=== PATIENT | female | born 1980 | race American Indian/Alaskan Native ===

== ENCOUNTER 2022-04-28 13:38 | Emergency (ER) | payer OTHER ==
[2022-04-28] MEDS ORDERED: LORazepam 2 MG/ML VIAL IV ONE (16:13)
[2022-04-28] MEDS ORDERED: SODIUM CHLORIDE 0.9% 1000 ML 1,000 ML IV ONE ×3 (16:13→22:10)
[2022-04-28] MEDS ORDERED: MORPHINE 4 MG/1 ML INJ IV ONE (16:13)
--- NOTE | 2022-04-28 16:38 | Emergency Department Report ---
ED General Adult HPI - General Chief complaint: Headache Stated complaint: MIGRAINE/LIGHTHEADED/BLURRED VISION Time Seen by Provider: 04/28/22 15:22 Source: patient, EMS Mode of arrival: Stretcher Limitations: No Limitations - History of Present Illness Initial comments: Is a 41-year-old female with past medical history of depression, anxiety, alcohol abuse. Patient reports that she has had symptoms sent since 10:15 AM. They note that she has felt tingly headache chest pain and shortness of breath. Patient's last alcohol use was 12:30 AM when she had [employer]. She reports her headache is 7 out of 10. She also states she feels very thirsty. Patient also history of hypothyroid and is on levothyroxine although she states she missed multiple doses. She also has a history of iron deficiency anemia possibly also vitamin B12 deficiency. He states she has also had heavy menses. Severity scale (0 -10): 7 - Related Data Allergies Allergy/AdvReac Type Severity Reaction Status Date / Time codeine Allergy Itching Verified 04/28/22 13:58 ED Review of Systems ROS: Stated complaint: MIGRAINE/LIGHTHEADED/BLURRED VISION Other details as noted in HPI Constitutional: denies: chills, fever Eyes: denies: eye pain, eye discharge, vision change ENT: denies: ear pain, throat pain Respiratory: denies: cough, shortness of breath, wheezing Cardiovascular: chest pain, palpitations Endocrine: no symptoms reported Gastrointestinal: denies: abdominal pain, nausea, diarrhea Genitourinary: denies: urgency, dysuria, discharge Musculoskeletal: denies: back pain, joint swelling, arthralgia Skin: denies: rash, lesions Neurological: headache, weakness, numbness, paresthesias Psychiatric: denies: anxiety, depression Hematological/Lymphatic: denies: easy bleeding, easy bruising ED Past Medical Hx - Past Medical History Previous Medical History?: Yes Hx Headaches / Migraines: Yes Additional medical history: Hyperthyroidism, severe Anemia, Coagulation difficulty. - Surgical History Past Surgical History?: Yes Hx Coronary Stent: No Hx Open Heart Surgery: No Hx Pacemaker: No Hx Internal Defibrillator: No Hx Cholecystectomy: No Hx Appendectomy: No Hx Breast Surgery: No Additional Surgical History: Thyroidectomy - Social History Smoking Status: Never Smoker ED Physical Exam - General Limitations: No Limitations General appearance: alert, in distress - Head Head exam: Present: atraumatic, normocephalic - Eye Eye exam: Present: normal appearance - ENT ENT exam: Present: normal exam, mucous membranes moist - Neck Neck exam: Present: normal inspection - Respiratory Respiratory exam: Present: normal lung sounds bilaterally. Absent: respiratory distress, wheezes, rales, rhonchi - Cardiovascular Cardiovascular Exam: Present: tachycardia. Absent: systolic murmur, diastolic murmur, rubs, gallop - GI/Abdominal GI/Abdominal exam: Present: soft, normal bowel sounds. Absent: distended, tenderness - Rectal Rectal exam: Present: deferred - Extremities Exam Extremities exam: Present: normal inspection - Back Exam Back exam: Present: normal inspection - Neurological Exam Neurological exam: Present: alert, oriented X3 - Psychiatric Psychiatric exam: Present: normal affect, normal mood - Skin Skin exam: Present: warm, dry, intact, normal color. Absent: rash ED Course Vital Signs 04/28/22 04/28/22 04/28/22 13:55 15:07 19:17 Temperature 98.2 F Pulse Rate 107 H 88 102 H Respiratory 18 13 15 Rate Blood Pressure 129/84 Blood Pressure 150/93 129/84 147/93 [Left] O2 Sat by Pulse 100 99 99 Oximetry - Reevaluation(s) Reevaluation #1: 04/28/22 19:[address] is negative. Patient feels somewhat improved with headache plan to give migraine cocktail and reassess. Dimer is negative and tachycardia is improved and O2 sats remain at 100. Reevaluation #2: 04/28/22 21:27 TSH noted to be elevated. Reevaluation #3: 04/28/22 23:43 Patient is improved. She no longer has a headache. I discussed strict return precautions including worsening headache, any fever or neck pain, any worsening chest pain shortness of breath abnormal altered activity. ED Medical Decision Making - Lab Data Result diagrams: 04/28/22 16:24 04/28/22 16:24 - EKG Data -: EKG Interpreted by Me EKG shows normal: sinus rhythm Rate: tachycardia - EKG Data 04/28/22 16:42 EKG performed shows T wave inversions in lead III. Patient has sinus tachycardia with a rate of 124. - Radiology Data Radiology results: report reviewed, image reviewed - Medical Decision Making Patient is a 41-year-old female presented to the emergency department complaint of headache, chest pain, shortness of breath. She is noted to be high hypertensive and tachycardic. Differential includes intracranial hemorrhage, Manera embolism Critical care attestation.: If time is entered above; I have spent that time in minutes in the direct care of this critically ill patient, excluding procedure time. ED Disposition Clinical Impression: Headache, Dyspnea, Chest pain Disposition: HOME / SELF CARE / HOMELESS Is pt being admited?: No Does the pt Need Aspirin: No Condition: Stable Instructions: Nonspecific Chest Pain, Adult, General Headache Without Cause Additional Instructions: If your symptoms including headache chest pain shortness of breath worsen please return to the emergency department. Referrals: PRIMARY CAREMD [Primary Care Provider] - 3-5 Days VALENTIN GARCIA MD [Staff Physician] - 3-5 Days (If you need a primary care doctor.) Forms: Work/School Release Form(ED) Time of Disposition: 23:45
--- NOTE | 2022-04-28 16:51 | XRay Report ---
CHEST 1 VIEW 04/28/2022 4:16 PM INDICATION / CLINICAL INFORMATION: chest pain. COMPARISON: None available. FINDINGS: SUPPORT DEVICES: None. HEART / MEDIASTINUM: No significant abnormality. LUNGS / PLEURA: No significant pulmonary or pleural abnormality. No pneumothorax. ADDITIONAL FINDINGS: No significant additional findings. IMPRESSION: 1. No acute findings. Signer Name: Ruperto Cornejo DO Signed: 04/28/2022 4:46 PM Workstation Name: [id number]
[2022-04-28 17:00] LABS: Basophils % (Auto) 0.4 % (0.0-1.8); Hematocrit 37.7 % (30.3-42.9); Hemoglobin 12.1 gm/dl (10.1-14.3); Lymphocytes # (Auto) 0.7 K/mm3 (1.2-5.4); Lymphocytes % (Auto) 6.4 % (13.4-35.0); Mean Corpuscular HGB Conc 32 % (30-34); Mean Corpuscular Volume 92 fl (79-97); Monocytes # (Auto) 0.5 K/mm3 (0.0-0.8); Monocytes % (Auto) 4.1 % (0.0-7.3); Platelet Count 379 K/mm3 (140-440); Red Blood Count 4.09 M/mm3 (3.65-5.03)
[2022-04-28 17:16] LABS: Alanine Aminotransferase 19 units/L (7-56); Albumin 5.2 g/dL (3.9-5); Blood Urea Nitrogen 16 mg/dL (7-17); Calcium 9.1 mg/dL (8.4-10.2); Hemolysis Index 2
[2022-04-28 17:29] LABS: Bilirubin,Urine NEG (Negative); Blood,Urine MOD (Negative); Color,Urine Yellow (Yellow); Urobilinogen,Urine < 2.0 mg/dL (<2.0)
[2022-04-28 17:38] LABS: Amphetamine Screen,Urine Negative; Benzodiazepines Screen,Urine Negative; Cannabinoid Screen,Urine Negative; Cocaine Screen,Urine Negative; Methadone Screen,Urine Negative; Opiate Screen,Urine Negative
[2022-04-28 17:39] LABS: Mucus,Urine 2+ /HPF
[2022-04-28 17:50] LABS: BUN/Creatinine Ratio 27
--- NOTE | 2022-04-28 17:54 | Cat Scan Report ---
CT BRAIN: 04/28/2022 INDICATION / CLINICAL INFORMATION: headache per pt, lost vision and dizzy. COMPARISON: None available. FINDINGS: BRAIN/INTRACRANIAL STRUCTURES: Unenhanced CT images of the brain demonstrate no evidence of acute abn ormality. Ventricles and sulci are normal in size and shape. There is no evidence of hemorrhage or mass. There are no abnormal extra-axial fluid collections. EXTRACRANIAL STRUCTURES: Unremarkable. IMPRESSION: No acute abnormality. All CT scans at this location are performed using dose reduction to ALARA by means of automated expos ure control. Signer Name: Aristides Correa MD Signed: 04/28/2022 5:50 PM Workstation Name: [id number]
[2022-04-28] MEDS ORDERED: diphenhydrAMINE 50 MG/ML VIAL IV ONE ×2 (19:03→22:10)
[2022-04-28] MEDS ORDERED: ACETAMINOPHEN 500 MG TAB PO ONE ×2 (19:03→22:10)
[2022-04-28] MEDS ORDERED: METOCLOPRAMIDE 10 MG/2 ML INJ IV ONE ×2 (19:03→22:10)
[2022-04-28] MEDS ORDERED: KETOROLAC 30 MG/1 ML INJ IV ONE ×2 (19:03→22:10)
[2022-04-28] MEDS ORDERED: POTASSIUM CHLORIDE ER 20 MEQ TAB PO ONE (19:05)
[2022-04-28 23:47] VITALS: BP 138/86
--- NOTE | 2022-04-30 08:51 | Electrocardiograph Report ---
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
--- NOTE | 2022-04-30 08:55 | Electrocardiograph Report ---
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
== END 2022-04-29 00:26 | disposition home or self-care (01) ==
LOC: ED 13:38
DX: R51.9 Headache, unspecified (principal); R07.9 Chest pain, unspecified; R06.00 Dyspnea, unspecified; Z91.09 Other allergy status, other than to drugs and biological substances; Z79.899 Other long term (current) drug therapy
CPT/HCPCS: 36415; 70450; 71045; 80053; 80307; 81001; 83735; 84443; 84484; 84703; 85025; 85379; 93005; 96361; 96374; 96375; 99285; J1200; J1885; J2060; J2270; J2765; J7030; 80320; G0480